=== PATIENT | female | born 1980 | race Caucasian/White ===

== ENCOUNTER 2017-08-18 12:12 | Emergency (ER) | payer SELFPAY ==
[2017-08-18 12:18] VITALS: BP 144/96; PULSE 88; RESP 18; TEMP 97.9; O2SAT 98
--- NOTE | 2017-08-18 14:04 | EDPHY ---
H & P Smoking Status: Current every day smoker Time Seen by Provider: 08/18/17 13:33 HPI/ROS: CHIEF COMPLAINT: Anxiety HISTORY OF PRESENT ILLNESS: 37-year-old female presents to the emergency department feeling extremely anxious. She recently moved to [place] and is missing her son who lives in [place]. She is also prescribed clonazepam 1 mg and has been without this medication for a few days. She is requesting refill of her clonazepam. She does not feel depressed. She denies suicidal homicidal ideation. Currently she has no physical complaints. She does state that she is having difficulty sleeping however because she is so anxious. REVIEW OF SYSTEMS: Constitutional: No fever, no chills. Eyes: No double or blurry vision. ENT: No sore throat. Respiratory: No cough, no shortness of breath. Cardiac: No chest pain. Gastrointestinal: No abdominal pain, vomiting or diarrhea. Genitourinary: No dysuria. Musculoskeletal: No neck or back pain. Skin: No rashes. Neurological: No headache. (Jacki Keller) Past Medical/Surgical History: Anxiety (Jacki Keller) Social History: (Jacki Keller) Physical Exam: General Appearance: Alert, no distress. Tearful Eyes: Pupils equal and round. Extraocular motions are all intact. ENT: Mouth: Mucous membranes moist. Respiratory: No wheezing, rhonchi, or rales, lungs are clear to auscultation. Cardiovascular: Regular rate and rhythm. Gastrointestinal: Abdomen is soft and nontender, no masses, no rebound or guarding, bowel sounds normal. Neurological: Alert and oriented x 3, cranial nerves II through XII grossly intact Skin: Warm and dry, no rashes. Musculoskeletal: Nontender to palpate along the cervical, thoracic or lumbar spine. Neck is supple. Extremities: Full range of motion and no peripheral edema. Psychiatric: Patient is oriented X 3, there is no agitation. (Jacki Keller) Constitutional: Initial Vital Signs Temperature (C) 36.6 C 08/18/17 12:13 Heart Rate 88 08/18/17 12:13 Respiratory Rate 18 08/18/17 12:13 Blood Pressure 144/96 H 08/18/17 12:13 O2 Sat (%) 98 08/18/17 12:13 O2 Delivery Mode Room Air Allergies/Adverse Reactions: No Known Allergies Allergy (Unverified 08/18/17 12:19) Home Medications: Medication Instructions Recorded Levothyroxine [Synthroid 88 mcg 88 mcg PO DAILY06 08/18/17 (*)] clonAZEPAM [Klonopin] 0.5 mg PO 08/18/17 clonazePAM [klonoPIN (*)] 1 mg PO BID PRN #10 tab 08/18/17 Medical Decision Making ED Course/Re-evaluation: 37-year-old female presents to the emergency department history of anxiety. She is requesting refill of her clonazepam. She was given #10 1 mg clonazepam. She was given primary care referral. She is planning on moving back to [place] September 13 when her lease is up. Patient declined mental health evaluation. (Jacki Keller) The patient was evaluated and managed by the physician phlebotomist medical lab assistant. I have reviewed this chart and I agree with the findings and plan of care as documented , as indicated by my signature. I am the secondary supervising physician. ( Suzanne Nixon) Differential Diagnosis: Including functional and major depression, situational depression, medication side effect, drugs and alcohol abuse. (Jacki Keller) Departure - Departure Disposition: Home, Routine, Self-Care Clinical Impression: Anxiety, Medication refill Condition: Good Instructions: Anxiety (ED), Medicine Refill (ED) Additional Instructions: Clonazepam as directed for symptoms of anxiety. Follow up with your primary care provider as discussed. Return to the emergency department if you have any other change in symptoms or if you feel worse in any way. Referrals: MD ANGELICA [Other] - As per Instructions Estevan Castillo MD [Medical Doctor] - 2-3 days, call for appt. (Primary care provider [facility]) Prescriptions: clonazePAM [klonoPIN (*)] 1 mg PO BID PRN #10 tab PRN Reason: Anxiety
== END 2017-08-18 14:11 | disposition home or self-care (01) ==
DX: F41.9 Anxiety disorder, unspecified (principal); F17.200 Nicotine dependence, unspecified, uncomplicated; Z76.0 Encounter for issue of repeat prescription